=== PATIENT | female | born 1945 | race Caucasian/White ===

== ENCOUNTER 2018-05-29 07:45 | Emergency (ER) | payer MEDICARE, OTHER ==
--- NOTE | 2018-05-29 08:27 | EDM.PDOC ---
ED HPI GENERAL MEDICAL PROBLEM - General Chief Complaint: Cardiovascular Problem Stated Complaint: HIGH BLOOD PRESSURE Time Seen by Provider: 05/29/18 08:27 Source of Information: Reports: Patient History Limitations: Reports: No Limitations - History of Present Illness INITIAL COMMENTS - FREE TEXT/NARRATIVE: 72-year-old female presents to the ED for unclear reasons. She states yesterday she felt well. Is very difficult to nail this down as to what was going on. She reports a feeling of weakness tremulousness and shortness of breath on exertion around her home. Yeso much more short of breath than normal. Has a history of asthma and rarely uses her albuterol inhaler. Denies cough or much sputum production. No fever no chills. Appetite is been fair. She has intermittent problems with chronic bouts of nausea. Recently started on metoprolol which he found that she could not tolerate because it caused too much GI symptoms and constipation. She also stopped her Crestor which was being used for cluster lowering agent because it made her so stiff in her muscles that she could not walk. Her chief complaint is primarily that her blood pressure seems to be elevated and out of control. BP here is 143/89. Onset: Gradual, Unknown/Unsure (Chronic sort of type illness worse yesterday.) Duration: Hour(s):, Intermittent, Waxing/Waning Location: Reports: Chest (Dyspnea shortness of breath and palpitations.), Abdomen (Intermittent nausea). Denies: Upper Extremity, Left, Upper Extremity, Right, Lower Extremity, Left, Other Quality: Reports: Other ("'s and dyspnea. Some dizziness.) Severity: Moderate Improves with: Reports: None Worsens with: Reports: None Context: Denies: Activity, Exercise, Lifting, Sick Contact, Trauma, Other Associated Symptoms: Reports: Cough, Loss of Appetite, Malaise, Shortness of Breath, Weakness. 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) (Has taken no new medications.) Chest Pain Score (Numeric/FACES): 8 - Related Data Allergies Allergy/AdvReac Type Severity Reaction Status Date / Time metoprolol Allergy Edema Verified 05/29/18 08:15 pravastatin Allergy Rash Verified 05/29/18 08:15 diltiazem AdvReac Anxiety Verified 05/29/18 08:58 lisinopril AdvReac Cough Verified 05/29/18 08:58 loratadine AdvReac Body Aches Verified 05/29/18 08:58 rosuvastatin AdvReac Leg Cramps Verified 05/29/18 08:58 [id number] Reductase AdvReac Muscle Verified 05/29/18 08:58 Inhibitor Aches Home Meds: Home Meds Albuterol [Ventolin HFA] 1 - 2 puff INH Q4H PRN 05/29/18 [History] Fluticasone Furoate [Flonase Sensimist] 2 spray NASBOTH DAILY 05/29/18 [History] LORazepam [Ativan] 0.5 mg PO Q8H PRN 05/29/18 [History] LORazepam [Ativan] 0.5 mg PO Q8H PRN #15 tablet 05/29/18 [Rx] Levothyroxine [Synthroid] 50 mcg PO DAILY 05/29/18 [History] Losartan [Cozaar] 50 mg PO DAILY 05/29/18 [History] Magnesium Hydroxide [Milk of Magnesia] 30 ml PO ASDIRECTED PRN 05/29/18 [History ] Ondansetron [Zofran] 4 mg BUCCAL Q6H PRN #10 tab 05/29/18 [Rx] buPROPion [buPROPion XL] 150 mg PO DAILY 05/29/18 [History] Past Medical History HEENT History: Reports: Cataract, Impaired Vision Other HEENT History: wears eyeglasses. 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): Other (See Below) Endocrine/Metabolic History: Reports: Diabetes, Type II (Controlled mostly by diet at this time), Hypothyroidism - Infectious Disease History Infectious Disease History: Reports: Chicken Pox, Measles, Mumps - Past Surgical History HEENT Surgical History: Reports: Cataract Surgery, Tonsillectomy GI Surgical History: Reports: Colonoscopy Female Surgical History: Reports: Breast Reduction, D&C (2 in the past due to heavy menstrual flow.) Social & Family History - Tobacco Use Smoking Status *Q: Never Smoker Second Hand Smoke Exposure: Yes - Caffeine Use Caffeine Use: Reports: Coffee - Recreational Drug Use Recreational Drug Use: No - Living Situation & Occupation Living situation: Reports: Occupation: Retired ED ROS GENERAL - Review of Systems Review Of Systems: See Below Constitutional: Reports: Malaise, Fatigue, Decreased Appetite, Weight Loss. Denies: Fever, Chills HEENT: Reports: Glasses Respiratory: Reports: Shortness of Breath, Cough (Mild and nonproductive). Denies: Wheezing, Pleuritic Chest Pain Cardiovascular: Reports: Blood Pressure Problem (Chronic hypertension.), Dyspnea on Exertion, Lightheadedness. 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 Pulse ox is 95% on room air but her hands are cool to touch.) Eye Exam: Bilateral Eye: Normal Inspection (No scleral icterus) Throat/Mouth: Normal Inspection, Normal Lips, Normal Oropharynx Head: Atraumatic, Normocephalic Neck: Normal Inspection, Supple, Non-Tender, Full Range of Motion, Other. No: Carotid Bruit, Lymphadenopathy (L), Lymphadenopathy (R) Respiratory/Chest: No Respiratory Distress (No JVD), Lungs Clear, Normal Breath Sounds, No Accessory Muscle Use, Other (Pacemaker present left upper anterior chest). No: Rales, Rhonchi, Wheezing Cardiovascular: Normal Peripheral Pulses, Regular Rate, Rhythm, No Edema, No Gallop, No Murmur Peripheral Pulses: 2+: Posterior Tibial (L), Posterior Tibial (R), Dorsalis Pedis (L), Dorsalis Pedis (R) GI/Abdominal: Normal Bowel Sounds, Soft, Non-Tender, No Organomegaly, No Abnormal Bruit, No Mass, Pelvis Stable, Other (No scars.) Back Exam: Normal Inspection, Full Range of Motion. No: CVA Tenderness (L), CVA Tenderness (R) Extremities: Normal Inspection, Normal Range of Motion, Non-Tender, No Pedal Edema. No: Pedal Edema Neurological: Alert, Oriented, CN II-XII Intact, Normal Cognition, Normal Gait Psychiatric: Anxious, Flat Affect Skin Exam: Warm, Dry, Intact, Normal Color, No Rash EKG INTERPRETATION EKG Date: 05/29/18 Time: 08:06 Rhythm: NSR Rate (Beats/Min): 73 [place]: LAD-Left [place] Deviation (-46 with a left anterior fascicular block pattern.) P-Wave: Present (With borderline first-degree AV block) QRS: Other (Decreased voltage in the precordial leads. Poor R-wave progression throughout with late transition) ST-T: Other QT: Normal EKG Interpretation Comments: Abnormal ECG Course - Vital Signs Last Recorded V/S: Last Vital Signs Temp 36.3 C 05/29/18 08:00 Pulse 88 05/29/18 08:00 Resp 16 05/29/18 08:00 BP 143/89 H 05/29/18 08:00 Pulse Ox 95 05/29/18 08:00 - Orders/Labs/Meds Orders: Active Orders 24 hr Category Date Time Status EKG Documentation Completion [RC] STAT Care 05/29/18 08:34 Active Chest 1V Frontal [CR] Stat Exams 05/29/18 08:34 Taken Sodium Chloride 0.9% [Normal Saline] 1,000 ml Med 05/29/18 09:00 Active IV ASDIRECTED Medication Orders Sodium Chloride (Normal Saline) 1,000 mls @ 150 mls/hr IV ASDIRECTED JAMES Last Admin: 05/29/18 09:10 Dose: 150 mls/hr Labs: Laboratory Tests 05/29/18 05/29/18 05/29/18 Range/Units 08:30 08:30 08:30 WBC 8.41 (3.98-10.04) K/mm3 RBC 4.91 (3.98-5.22) M/mm3 Hgb 14.7 (11.2-15.7) gm/L Hct 44.6 (34.1-44.9) % MCV 90.8 (79.4-94.8) fl MCH 29.9 (25.6-32.2) pg MCHC 33.0 (32.2-35.5) g/dl RDW Std Deviation 45.0 (36.4-46.3) fL Plt Count 316 (182-369) K/mm3 MPV 10.5 (9.4-12.3) fl Neutrophils % (Manual) 77 H (40-60) % Band Neutrophils % 0 (0-10) % Lymphocytes % (Manual) 11 L (20-40) % Atypical Lymphs % 0 % Monocytes % (Manual) 10 (2-10) % Eosinophils % (Manual) 0 L (0.7-5.8) % Basophils % (Manual) 2 H (0.1-1.2) Platelet Estimate Adequate RBC Morph Comment Normal D-Dimer, Quantitative (0.19-0.50) mg/L Sodium 140 (136-145) mEq/L Potassium 3.9 (3.5-5.1) mEq/L Chloride 107 (98-107) mEq/L Carbon Dioxide 24 (21-32) mEq/L Anion Gap 12.9 (5-15) BUN 12 (7-18) mg/dL Creatinine 0.9 (0.55-1.02) mg/dL Est Cr Clr Drug Dosing 54.94 mL/min Estimated GFR (MDRD) > 60 (>60) mL/min BUN/Creatinine Ratio 13.3 L (14-18) Glucose 127 H (83-115) mg/dL Hemoglobin A1c (4.50-6.20) % Calcium 9.6 (8.5-10.1) mg/dL Magnesium 2.0 (1.8-2.4) mg/dl Total Bilirubin 0.8 (0.2-1.0) mg/dL AST 17 (15-37) U/L ALT 32 (14-59) U/L Alkaline Phosphatase 86 (46-116) U/L CK-MB (CK-2) 0.9 (0-3.6) ng/ml Troponin I < 0.017 (0.00-0.056) ng/mL C-Reactive Protein 0.5 (<1.0) mg/dL NT-Pro-B Natriuret Pep 66 (0-125) pg/mL Total Protein 6.8 (6.4-8.2) g/dl Albumin 3.5 (3.4-5.0) g/dl Globulin 3.3 gm/dL Albumin/Globulin Ratio 1.1 (1-2) TSH 3rd Generation 2.336 (0.358-3.74) uIU/mL Urine Color (Yellow) Urine Appearance (Clear) Urine pH (5.0-8.0) Ur Specific [place] (1.005-1.030) Urine Protein (Negative) Urine Glucose (UA) (Negative) Urine Ketones (Negative) Urine Occult Blood (Negative) Urine Nitrite (Negative) Urine Bilirubin (Negative) Urine Urobilinogen (0.2-1.0) Ur Leukocyte Esterase (Negative) Urine RBC (0-5) /hpf Urine WBC (0-5) /hpf Ur Epithelial Cells Ur Squamous Epith Cells (0-5) /hpf Urine Bacteria (FEW) /hpf Urine Mucus (FEW) /hpf 05/29/18 05/29/18 05/29/18 Range/Units 08:30 08:30 09:05 WBC (3.98-10.04) K/mm3 RBC (3.98-5.22) M/mm3 Hgb (11.2-15.7) gm/L Hct (34.1-44.9) % MCV (79.4-94.8) fl MCH (25.6-32.2) pg MCHC (32.2-35.5) g/dl RDW Std Deviation (36.4-46.3) fL Plt Count (182-369) K/mm3 MPV (9.4-12.3) fl Neutrophils % (Manual) (40-60) % Band Neutrophils % (0-10) % Lymphocytes % (Manual) (20-40) % Atypical Lymphs % % Monocytes % (Manual) (2-10) % Eosinophils % (Manual) (0.7-5.8) % Basophils % (Manual) (0.1-1.2) Platelet Estimate RBC Morph Comment D-Dimer, Quantitative 0.38 (0.19-0.50) mg/L Sodium (136-145) mEq/L Potassium (3.5-5.1) mEq/L Chloride (98-107) mEq/L Carbon Dioxide (21-32) mEq/L Anion Gap (5-15) BUN (7-18) mg/dL Creatinine (0.55-1.02) mg/dL Est Cr Clr Drug Dosing mL/min Estimated GFR (MDRD) (>60) mL/min BUN/Creatinine Ratio (14-18) Glucose (83-115) mg/dL Hemoglobin A1c 6.10 (4.50-6.20) % Calcium (8.5-10.1) mg/dL Magnesium (1.8-2.4) mg/dl Total Bilirubin (0.2-1.0) mg/dL AST (15-37) U/L ALT (14-59) U/L Alkaline Phosphatase (46-116) U/L CK-MB (CK-2) (0-3.6) ng/ml Troponin I (0.00-0.056) ng/mL C-Reactive Protein (<1.0) mg/dL NT-Pro-B Natriuret Pep (0-125) pg/mL Total Protein (6.4-8.2) g/dl Albumin (3.4-5.0) g/dl Globulin gm/dL Albumin/Globulin Ratio (1-2) TSH 3rd Generation (0.358-3.74) uIU/mL Urine Color Yellow (Yellow) Urine Appearance Clear (Clear) Urine pH 7.0 (5.0-8.0) Ur Specific [place] 1.015 (1.005-1.030) Urine Protein Negative (Negative) Urine Glucose (UA) Negative (Negative) Urine Ketones Negative (Negative) Urine Occult Blood Negative (Negative) Urine Nitrite Negative (Negative) Urine Bilirubin Negative (Negative) Urine Urobilinogen 0.2 (0.2-1.0) Ur Leukocyte Esterase Negative (Negative) Urine RBC Not seen (0-5) /hpf Urine WBC Not seen (0-5) /hpf Ur Epithelial Cells Not Reportable Ur Squamous Epith Cells 0-5 (0-5) /hpf Urine Bacteria Not seen (FEW) /hpf Urine Mucus Not seen (FEW) /hpf Meds: Medications Generic Name Dose Route Start Last Admin Trade Name Freq PRN Reason Stop Dose Admin Sodium Chloride 1,000 mls @ 150 mls/hr 05/29/18 09:00 05/29/18 09:10 Normal Saline IV 150 mls/hr ASDIRECTED JAMES Administration Discontinued Medications Generic Name Dose Route Start Last Admin Trade Name Marli PRN Reason Stop Dose Admin Lorazepam 0.5 mg 05/29/18 08:56 05/29/18 09:08 Ativan IVPUSH 05/29/18 08:57 0.5 mg ONETIME ONE Administration Ondansetron HCl 4 mg 05/29/18 08:35 05/29/18 09:00 Zofran Odt PO 05/29/18 08:36 Not Given ONETIME ONE Ondansetron HCl 4 mg 05/29/18 08:56 05/29/18 09:06 Zofran IVPUSH 05/29/18 08:57 4 mg ONETIME ONE Administration Ondansetron HCl 4 mg 05/29/18 08:58 05/29/18 08:59 Zofran IVPUSH 05/29/18 08:59 Not Given ONETIME ONE - Radiology Interpretation Free Text/Narrative:: 72-year-old female presents to the ED with generally not feeling well. Yesterday she felt horrible and by this she means more short of breath on minimal exertion. Yeso tremulous and weak. Feels her blood pressure is elevated today. Associated increased nausea straight without any vomiting. Nausea is a recurrent problem for her suggesting medications may be part of the problem. She is apparently a type II diabetic currently controlled with no medications because of intolerance to metformin. Has a history of hypercholesterolemia but could not tolerate statins thus far. History of hypertension. Currently on losartan only for blood pressure control. Lungs sound clear to stage percussion. Plan routine labs ECG and chest x-ray to be done. An IV has been started. I will give her normal saline at 150 mils per hour. Zofran 4 mg IV and Ativan 0.5 mg IV as well. - Re-Assessments/Exams Free Text/Narrative Re-Assessment/Exam: 05/29/18 09:22 White count is 8.41 with normal differential 77% neutrophils and no bands. Hemoglobin 14.7 with hematocrit of 44.6. Platelet count 3 or 16,000. D -dimer 0.38. Hemoglobin A1c is 6.10. BNP is 66. Chest x-ray done portably reveals slight hyperinflation of lung ivey. Mild to moderate cardiomegaly. Increased fat pad along the right heart border. Perhaps very minimal vascular congestion. 05/29/18 09:51 Sodium 140 with potassium of 3.9. Chloride 107 with a bicarbonate 24. And a gap is 12.9. BUN is 12 with a creatinine of 0.9. GFR is greater than 60. Glucose is 127. Hemoglobin A1c is 6.10. Calcium is 9.6 with a magnesium of 2.0. Liver function is normal. CK-MB is pending as is troponin I. C -reactive protein is 0.5. BNP is 66. TSH is also pending. Initial urinalysis by dip shows no abnormalities. Leukocyte esterase is negative 05/29/18 10:21 Troponin I is less than 0.017. CK-MB fraction is 0.9. TSH is 2.36. Urinalysis is completely normal. 05/29/18 10:36 patient is feeling much improved. I'm wondering if she doesn't have a component of GERD to contribute to her central chest discomfort at times. It could also be anxiety. She has some insight into this. The Ativan that she is using is from 2009 and likely has lost its potency. Plan I will rewrite a prescription for Ativan 0.5 mg to be used on a when necessary basis for anxiety. Suggested staying on ranitidine every night at bedtime for the next 2 weeks as a trial to see if this makes her feel better. At present she is using only intermittent as-needed basis. I will also write a prescription for Zofran 4 mg sublingual to be used when necessary for nausea relief. She will follow-up with personal care physician if any further problems occur. At present it doesn't appear that her she has any significant diabetes with a glycosylated protein of 6.10 at 12 or not to worry about taking metformin at this time. Tolerate statins. Reassured that her cholesterol was not a major issue at this time. Departure - Departure Time of Disposition: 10:38 Disposition: Home, Self-Care 01 Condition: Fair Clinical Impression: Non-cardiac chest pain, Essential hypertension, benign, Anxiety Prescriptions: LORazepam [Ativan] 0.5 mg PO Q8H PRN #15 tablet PRN Reason: Relief of anxiety Ondansetron [Zofran] 4 mg BUCCAL Q6H PRN #10 tab PRN Reason: nausea or vomiting Referrals: Otoniel Morel MD [Primary Care Provider] - Forms: ED Department Discharge Additional Instructions: Evaluation in the emergency department today in regards to mildly elevated blood pressure and central chest discomfort since yesterday afternoon. No abnormalities were detected on physical examination and vital signs were all normal. Routine labs were performed as well as an ECG and a chest x-ray which proved to be normal. Lab tests revealed no evidence of heart related illness and no blood clots in the lung. Treated with intravenous fluids normal saline and were given Ativan 0.5 mg IV and Zofran 4 mg IV for nausea relief. This seemed to provide some relief suggesting that anxiety may be playing a component in your current symptoms complex. Also possibility of reflux disease occurring at nighttime when you're sleeping causing irritation of the food pipe making have nonspecific chest discomfort is appreciated. Suggest using Zantac 150 mg every night at bedtime for a period of 2 weeks to see if this makes any difference. I did write a prescription for Ativan 0.5 mg tablets to be used on an as as-needed basis for really no relief of anxiety or chest discomfort since the ones that you have at home are quite old and may have lost their potency. Prescription written for Zofran 4 mg under the tongue every 6 hours if needed for relief of nausea. Follow-up with personal care physician if nausea persists as you may need an upper GI endoscopy to look into your food pipe and stomach. - My Orders Last 24 Hours: My Active Orders 05/29/18 08:34 EKG Documentation Completion [RC] STAT Chest 1V Frontal [CR] Stat 05/29/18 09:00 Sodium Chloride 0.9% [Normal Saline] 1,000 ml IV ASDIRECTED - Assessment/Plan Last 24 Hours: My Active Orders 05/29/18 08:34 EKG Documentation Completion [RC] STAT Chest 1V Frontal [CR] Stat 05/29/18 09:00 Sodium Chloride 0.9% [Normal Saline] 1,000 ml IV ASDIRECTED
[2018-05-29] MEDS ORDERED: Ondansetron 4 MG Tab.DIS PO ONE (08:35)
[2018-05-29] MEDS ORDERED: LORazepam 2 MG/ML SDV IVPUSH ONE (08:56)
[2018-05-29] MEDS ORDERED: Ondansetron 4 MG/2 ML SDV IVPUSH ONE ×2 (08:56→08:58)
[2018-05-29] MEDS ORDERED: Sodium Chloride 0.9% 1,000 ML IV SCH (09:00)
[2018-05-29 09:06] LABS: HEMOGLOBIN A1C 6.1 % (4.50-6.20)
--- NOTE | 2018-05-29 13:07 | CR ---
Chest: Portable view of the chest was obtained. Comparison: Prior chest x-ray of 08/10/13. Heart size is normal. Upper mediastinum is normal. Incidental density within the right cardiophrenic angle compatible with epicardial fat pad which is stable. Pacemaker is seen. Lungs are clear with no acute parenchymal change. Bony structures are grossly intact. Impression: 1. Incidental findings. Nothing acute is identified on portable chest x-ray. Diagnostic code #2
== END 2018-05-29 10:55 | disposition home or self-care (01) ==
LOC: JD.ED 07:45
DX: I10 Essential (primary) hypertension (principal); F41.9 Anxiety disorder, unspecified; R07.89 Other chest pain; E11.9 Type 2 diabetes mellitus without complications; E78.00 Pure hypercholesterolemia, unspecified; J45.909 Unspecified asthma, uncomplicated; Z79.899 Other long term (current) drug therapy; Z77.22 Contact with and (suspected) exposure to environmental tobacco smoke (acute) (chronic); Z88.8 Allergy status to other drugs, medicaments and biological substances
CPT/HCPCS: 36415; 71045; 80053; 81001; 82553; 82962; 83036; 83735; 83880; 84443; 84484; 85007; 85027; 85379; 86140; 93005; 96361; 96374; 96375; 99284; J2060; J2405; J7040; 93010; 99285

== ENCOUNTER 2018-06-30 15:54 | Emergency (ER) | payer MEDICARE, OTHER ==
--- NOTE | 2018-06-30 16:57 | EDM.PDOC ---
ED HPI GENERAL MEDICAL PROBLEM - General Chief Complaint: Cardiovascular Problem Stated Complaint: HIGH BLOOD PRESSURE Time Seen by Provider: 06/30/18 16:12 Source of Information: Reports: Patient History Limitations: Reports: No Limitations - History of Present Illness INITIAL COMMENTS - FREE TEXT/NARRATIVE: 72 yo F comes in today for concerns of high blood pressure at home. She states she took her blood pressure medication around 1pm and the reading kept going up. The highest reading at home was 185/91 at 3:30pm. She states she is normally around 135-40 systolically. She last took her BP medication at 1pm today. On arrival to the ED, her BP is 164/72. She denies any CURTIS, blurry vision , SOB, chest pain. She states she just felt "tightness" in her head, which usually means her BP is going up. Her only other concern at this time is that her Losartan that she has been on for years may be causing side effects of feeling jittery, shaky and light-headed, but she currently is not complaining of these symptoms. She states she has an appointment with her primary care provider, Dr. Howard, tomorrow morning to discuss this. No other concerns at this time. - Related Data Allergies Allergy/AdvReac Type Severity Reaction Status Date / Time metoprolol Allergy Edema Verified 06/30/18 16:11 pravastatin Allergy Rash Verified 06/30/18 16:11 diltiazem AdvReac Anxiety Verified 06/30/18 16:11 lisinopril AdvReac Cough Verified 06/30/18 16:11 loratadine AdvReac Body Aches Verified 06/30/18 16:11 rosuvastatin AdvReac Leg Cramps Verified 06/30/18 16:11 Hnixkec-Mmd-Anx Reductase AdvReac Muscle Verified 06/30/18 16:11 Inhibitor Aches Home Meds: Home Meds Levothyroxine [Synthroid] 50 mcg PO DAILY 05/29/18 [History] Losartan [Cozaar] 50 mg PO DAILY 05/29/18 [History] Past Medical History HEENT History: Reports: Cataract, Impaired Vision Other HEENT History: wears eyeglasses. 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: Endocrine/Metabolic History: Reports: Diabetes, Type II, Hypothyroidism - Infectious Disease History Infectious Disease History: Reports: Chicken Pox, Measles, Mumps - Past Surgical History HEENT Surgical History: Reports: Cataract Surgery, Tonsillectomy GI Surgical History: Reports: Colonoscopy Female Surgical History: Reports: Breast Reduction, D&C Social & Family History - Tobacco Use Smoking Status *Q: Never Smoker - Caffeine Use Caffeine Use: Reports: None - Recreational Drug Use Recreational Drug Use: No - Living Situation & Occupation Living situation: Reports: Occupation: Retired ED ROS GENERAL - Review of Systems Review Of Systems: ROS reveals no pertinent complaints other than HPI. ED EXAM, GENERAL - Physical Exam Exam: See Below Exam Limited By: No Limitations General Appearance: Alert, WD/WN, No Apparent Distress Eye Exam: Bilateral Eye: EOMI, Normal Inspection, PERRL Ears: Normal External Exam, Hearing Grossly Normal Nose: Normal Inspection Throat/Mouth: Normal Inspection, Normal Lips, Normal Teeth, Normal Gums, Normal Oropharynx, Normal Voice, No Airway Compromise Head: Atraumatic, Normocephalic Neck: Normal Inspection, Supple, Non-Tender, Full Range of Motion Respiratory/Chest: No Respiratory Distress, Lungs Clear, Normal Breath Sounds, No Accessory Muscle Use, Chest Non-Tender Cardiovascular: Normal Peripheral Pulses, Regular Rate, Rhythm, No Edema, No Gallop, No JVD, No Murmur, No Rub Neurological: Alert, Oriented, CN II-XII Intact, Normal Cognition, Normal Gait, Normal Reflexes, No Motor/Sensory Deficits Psychiatric: Normal Affect, Normal Mood Skin Exam: Warm, Dry, Intact, Normal Color, No Rash Course - Vital Signs Last Recorded V/S: Last Vital Signs Temp 97.2 F 06/30/18 16:09 Pulse 66 06/30/18 16:09 Resp 16 06/30/18 16:09 BP 164/72 H 06/30/18 16:09 Pulse Ox 94 L 06/30/18 16:09 - Re-Assessments/Exams Free Text/Narrative Re-Assessment/Exam: 06/30/18 16:54 Without any intervention, her BP is now down to 144/81. At this time, she is feeling stable enough to go home and does not want any workup done. She will follow up with her PCP tomorrow AM. Departure - Departure Time of Disposition: 16:54 Disposition: Home, Self-Care 01 Condition: Good Clinical Impression: Hypertension, benign Instructions: How to Take Your Blood Pressure, [id number], Hypertension, Easy -to-Read Referrals: Christelle Trejo MD [Primary Care Provider] - Forms: ED Department Discharge Additional Instructions: You were seen in the ED today for concerns of high blood pressure. When you arrived, your blood pressure was 164/72. Your last reading was 144/81. At this time, no intervention was needed. You are feeling well and have no concerns at this time. Offered a heart workup, but at this time you feel it is likely your blood pressure cuff at home gave a false reading. You will therefore be sent home as you are stable at this time. Recommend keeping your appointment with your primary care physician, Dr. Howard, tomorrow at 11am. Please return to ED if new or worsening symptoms.
== END 2018-06-30 17:03 | disposition home or self-care (01) ==
LOC: JD.ED 15:54
DX: I10 Essential (primary) hypertension (principal); E11.9 Type 2 diabetes mellitus without complications; E03.9 Hypothyroidism, unspecified; Z79.899 Other long term (current) drug therapy; Z88.8 Allergy status to other drugs, medicaments and biological substances
CPT/HCPCS: 99281

== ENCOUNTER 2020-05-26 09:20 | Emergency (ER) | payer MEDICARE, OTHER ==
[2020-05-26] MEDS ORDERED: Sodium Chloride 0.9% 10 ML Syringe FLUSH PRN (09:41)
[2020-05-26] MEDS ORDERED: Aspirin 81 MG Tab.Chew PO ONE (09:41)
--- NOTE | 2020-05-26 10:21 | CR ---
Chest: Portable view of the chest was obtained. Comparison: Portable chest x-ray of 05/29/18 is available. Heart size and mediastinum are normal. Slight epicardial fat pad is seen which is stable. Pacemaker is noted. Lungs are clear with no acute parenchymal change. No acute osseous finding is seen. Impression: 1. Nothing acute is appreciated on portable chest x-ray. Diagnostic code #2
--- NOTE | 2020-05-26 10:33 | EDM.PDOC ---
ED HPI GENERAL MEDICAL PROBLEM - General Chief Complaint: Chest Pain Stated Complaint: SOB Time Seen by Provider: 05/26/20 09:35 Source of Information: Reports: Patient History Limitations: Reports: No Limitations - History of Present Illness INITIAL COMMENTS - FREE TEXT/NARRATIVE: The patient presents with left sided chest pain. She describes the pain as burning. It is there all the time and it gets worse with exertion. She has some shortness of breath at times. She has no fever, chills, cough, nausea, vomiting, abdominal pain, leg pain or swelling. She has no history of coronary artery disease. She does have a pacemaker. She had a history of hypertension but her blood pressure was good and she was able to come off of the medications. She does not smoke. This has been going on for about 5 days. Onset: Gradual Duration: Day(s): (5) Location: Reports: Chest Quality: Reports: Burning Severity: Mild Improves with: Reports: Rest Worsens with: Reports: Movement Associated Symptoms: Reports: Chest Pain, Shortness of Breath. Denies: Cough, Fever/Chills, Headaches, Nausea/Vomiting Left Chest Pain Score (Numeric/FACES): 8 - Related Data Allergies Allergy/AdvReac Type Severity Reaction Status Date / Time metoprolol Allergy Edema Verified 05/26/20 09:30 pravastatin Allergy Rash Verified 05/26/20 09:30 diltiazem AdvReac Anxiety Verified 05/26/20 09:30 lisinopril AdvReac Cough Verified 05/26/20 09:30 loratadine AdvReac Body Aches Verified 05/26/20 09:30 rosuvastatin AdvReac Leg Cramps Verified 05/26/20 09:30 [id number] Reductase AdvReac Muscle Verified 05/26/20 09:30 Inhibitor Aches Home Meds: Home Meds Albuterol Sulfate [Proair Hfa] 2 puff INH DAILY PRN 05/26/20 [History] Fluticasone Propion/Salmeterol [Advair 250-50 Diskus] 1 each IH DAILY 05/26/20 [History] Past Medical History HEENT History: Reports: Cataract, Impaired Vision Other HEENT History: wears eyeglasses. Cardiovascular History: Reports: High Cholesterol, Hypertension, Pacemaker Respiratory History: Reports: Asthma [employer] History: Reports: Endocrine/Metabolic History: Reports: Diabetes, Type II, Hypothyroidism - Infectious Disease History Infectious Disease History: Reports: Chicken Pox, Measles, Mumps - Past Surgical History HEENT Surgical History: Reports: Cataract Surgery, Tonsillectomy GI Surgical History: Reports: Colonoscopy Female Surgical History: Reports: Breast Reduction, D&C Social & Family History - Tobacco Use Tobacco Use Status *Q: Never Tobacco User - Caffeine Use Caffeine Use: Reports: None - Recreational Drug Use Recreational Drug Use: No - Living Situation & Occupation Living situation: Reports: Occupation: Retired ED ROS GENERAL - Review of Systems Review Of Systems: See Below Constitutional: Reports: No Symptoms HEENT: Reports: No Symptoms Respiratory: Reports: Shortness of Breath. Denies: Cough Cardiovascular: Reports: Chest Pain Endocrine: Reports: No Symptoms GI/Abdominal: Reports: No Symptoms : Reports: No Symptoms Musculoskeletal: Reports: No Symptoms ED EXAM, GENERAL - Physical Exam Exam: See Below Exam Limited By: No Limitations General Appearance: Alert, No Apparent Distress Ears: Normal External Exam Nose: Normal Inspection Head: Atraumatic, Normocephalic Neck: Normal Inspection, Supple, Non-Tender Respiratory/Chest: No Respiratory Distress, Lungs Clear, Normal Breath Sounds Cardiovascular: Regular Rate, Rhythm, No Edema, No Murmur GI/Abdominal: Soft, Non-Tender, No Organomegaly, No Mass Back Exam: Normal Inspection Extremities: Normal Inspection Neurological: Alert, Oriented, No Motor/Sensory Deficits #1 Interpretation EKG Date: 05/26/20 Time: 09:28 Rhythm: NSR Rate (Beats/Min): 60 [place]: LAD-Left [place] Deviation P-Wave: Present QRS: Normal ST-T: Normal QT: Normal Course - Vital Signs Last Recorded V/S: Last Vital Signs Temp 98.2 F 05/26/20 09:28 Pulse 61 05/26/20 10:55 Resp 15 05/26/20 10:55 BP 134/66 05/26/20 10:55 Pulse Ox 95 05/26/20 10:55 - Orders/Labs/Meds Orders: Active Orders 24 hr Category Date Time Status Cardiac Monitoring [RC] . DIRECTED Care 05/26/20 09:41 Active EKG Documentation Completion [RC] ASDIRECTED Care 05/26/20 09:33 Active Peripheral IV Care [RC] . DIRECTED Care 05/26/20 09:42 Active Sodium Chloride 0.9% [Saline Flush] Med 05/26/20 09:41 Active 10 ml FLUSH ASDIRECTED PRN Peripheral IV Insertion Adult [OM.PC] Stat Oth 05/26/20 09:41 Ordered EKG 12 Lead [EK] Stat Ther 05/26/20 09:33 Ordered Medication Orders Sodium Chloride (Sodium Chloride 0.9% 10 Ml Syringe) 10 ml FLUSH ASDIRECTED PRN PRN Reason: Keep Vein Open Last Admin: 05/26/20 09:45 Dose: 10 ml Documented by: SADIA Labs: Laboratory Tests 05/26/20 05/26/20 05/26/20 Range/Units 09:38 09:38 09:38 WBC 10.05 H (3.98-10.04) K/mm3 RBC 4.98 (3.98-5.22) M/mm3 Hgb 15.0 (11.2-15.7) gm/dl Hct 45.7 H (34.1-44.9) % MCV 91.8 (79.4-94.8) fl MCH 30.1 (25.6-32.2) pg MCHC 32.8 (32.2-35.5) g/dl RDW Std Deviation 47.8 H (36.4-46.3) fL Plt Count 303 (182-369) K/mm3 MPV 10.5 (9.4-12.3) fl Neut % (Auto) 72.8 H (34.0-71.1) % Lymph % (Auto) 18.5 L (19.3-51.7) % Mcmullen % (Auto) 7.5 (4.7-12.5) % Eos % (Auto) 0.9 (0.7-5.8) Baso % (Auto) 0.1 (0.1-1.2) % Neut # (Auto) 7.32 H (1.56-6.13) K/mm3 Lymph # (Auto) 1.86 (1.18-3.74) K/mm3 Mcmullen # (Auto) 0.75 H (0.24-0.36) K/mm3 Eos # (Auto) 0.09 (0.04-0.36) K/mm3 Baso # (Auto) 0.01 (0.01-0.08) K/mm3 Manual Slide Review Normal smear D-Dimer, Quantitative 0.46 (0.19-0.50) mg/L Sodium 142 (136-145) mEq/L Potassium 3.9 (3.5-5.1) mEq/L Chloride 104 (98-107) mEq/L Carbon Dioxide 24 (21-32) mEq/L Anion Gap 17.9 H (5-15) BUN 20 H (7-18) mg/dL Creatinine 1.0 (0.55-1.02) mg/dL Est Cr Clr Drug Dosing 48.00 mL/min Estimated GFR (MDRD) 54 (>60) mL/min BUN/Creatinine Ratio 20.0 H (14-18) Glucose 89 (83-115) mg/dL Calcium 10.0 (8.5-10.1) mg/dL Magnesium 2.1 (1.8-2.4) mg/dl Total Bilirubin 1.1 H (0.2-1.0) mg/dL AST 19 (15-37) U/L ALT 26 (14-59) U/L Alkaline Phosphatase 77 (46-116) U/L Troponin I < 0.017 (0.00-0.056) ng/mL Total Protein 7.6 (6.4-8.2) g/dl Albumin 3.8 (3.4-5.0) g/dl Globulin 3.8 gm/dL Albumin/Globulin Ratio 1.0 (1-2) Meds: Medications Generic Name Dose Route Start Last Admin Trade Name Freq PRN Reason Stop Dose Admin Sodium Chloride 10 ml 05/26/20 09:41 05/26/20 09:45 Sodium Chloride 0.9% 10 Ml Syringe FLUSH 10 ml ASDIRECTED PRN Administration Keep Vein Open Discontinued Medications Generic Name Dose Route Start Last Admin Trade Name Freq PRN Reason Stop Dose Admin Aspirin 324 mg 05/26/20 09:41 05/26/20 09:50 Aspirin 81 Mg Tab.Chew PO 05/26/20 09:42 324 mg ONETIME ONE Administration - Re-Assessments/Exams Free Text/Narrative Re-Assessment/Exam: 05/26/20 10:31 I ordered an IV saline lock, aspirin, EKG, CXR and labs. His EKG shows a NST within no acute changes. Her CXR looks good. Her WBC was slightly elevated at 10.05. Her D-dimer was negative. Her anion gap was elevated at 17.9. Her tot al bili was elevated at 1.1. Her troponin is negative. 05/26/20 11:16 Her provider Neelam has a heart score CT set up for her on Wednesday. I think she also may need a stress test. I will have her call Neelam to set that up. She also has a history of some reflux. This could also be the cause. I will have her take some reflux. Departure - Departure Time of Disposition: 11:30 Disposition: Home, Self-Care 01 Condition: Good Clinical Impression: Atypical chest pain Referrals: Neelam Owusu, [facility] [Primary Care Provider] - 2 Days Forms: ED Department Discharge Additional Instructions: Take your medications as prescribed. Take pepcid daily. Follow up with Neelam and discuss possibly getting a stress test. Please return if you are worse. Sepsis Event Note (ED) - Evaluation Sepsis Screening Result: No Definite Risk - Focused Exam Vital Signs: Vital Signs Temp Pulse Resp BP Pulse Ox 05/26/20 10:55 61 15 134/66 95 05/26/20 09:28 98.2 F 65 16 162/79 H 96 - My Orders Last 24 Hours: My Active Orders 05/26/20 09:33 EKG Documentation Completion [RC] ASDIRECTED EKG 12 Lead [EK] Stat 05/26/20 09:41 Cardiac Monitoring [RC] . DIRECTED Sodium Chloride 0.9% [Saline Flush] 10 ml FLUSH ASDIRECTED PRN Peripheral IV Insertion Adult [OM.PC] Stat 05/26/20 09:42 Peripheral IV Care [RC] . DIRECTED - Assessment/Plan Last 24 Hours: My Active Orders 05/26/20 09:33 EKG Documentation Completion [RC] ASDIRECTED EKG 12 Lead [EK] Stat 05/26/20 09:41 Cardiac Monitoring [RC] . DIRECTED Sodium Chloride 0.9% [Saline Flush] 10 ml FLUSH ASDIRECTED PRN Peripheral IV Insertion Adult [OM.PC] Stat 05/26/20 09:42 Peripheral IV Care [RC] . DIRECTED
== END 2020-05-26 11:30 | disposition home or self-care (01) ==
LOC: JD.ED 09:20
DX: R07.89 Other chest pain (principal); R06.02 Shortness of breath; I10 Essential (primary) hypertension; J45.909 Unspecified asthma, uncomplicated; E11.9 Type 2 diabetes mellitus without complications; Z88.8 Allergy status to other drugs, medicaments and biological substances; Z79.899 Other long term (current) drug therapy
CPT/HCPCS: 36415; 71045; 80053; 83735; 84484; 85025; 85379; 93005; 99285; A9270; 93010; 99284

== ENCOUNTER 2022-03-31 06:53 | Day surgery (SDC) | payer MEDICARE, OTHER ==
[~2022-03-31 06:53] MED LIST: Lactated Ringers 1,000 ML IV SCH; Lidocaine 1%/Sod Bicarbonate in NS 8.4% 1 ML Syringe IDERM PRN; Sodium Chloride 0.9% 10 ML Syringe FLUSH PRN; Sodium Chloride 0.9% 10 ML Syringe FLUSH SCH
[2022-03-31] MEDS ORDERED: Lidocaine 1% 2 ML ONE (07:09)
[2022-03-31] MEDS ORDERED: Midazolam 1 MG/ML 2 ML SDV ONE (07:10)
[2022-03-31] MEDS ORDERED: fentaNYL 100 MCG/2 ML SDV ONE (07:10)
[2022-03-31] MEDS ORDERED: Ondansetron 4 MG/2 ML SDV ONE (07:10)
[2022-03-31] MEDS ORDERED: Propofol 200 MG/20 ML SDV ONE (07:10)
[2022-03-31] MEDS ORDERED: Lidocaine 1% 30 ML SDV ONE (07:11)
[2022-03-31] MEDS ORDERED: Iopamidol 612 MG/ML 50 ML SDV ONE (07:12)
[2022-03-31] MEDS ORDERED: HYDROmorphone 0.5 MG/0.5 ML Syringe IVPUSH PRN (07:26)
[2022-03-31] MEDS ORDERED: Ondansetron 4 MG/2 ML SDV IVPUSH PRN (07:26)
[2022-03-31] MEDS ORDERED: fentaNYL 100 MCG/2 ML SDV IVPUSH PRN (07:26)
== END 2022-03-31 09:22 | disposition home or self-care (01) ==
LOC: JD.SDS 06:53
PROVIDERS: ATTEND Obstetrics & Gynecology
DX: N84.0 Polyp of corpus uteri (principal); E11.9 Type 2 diabetes mellitus without complications; F41.9 Anxiety disorder, unspecified; I10 Essential (primary) hypertension; E03.9 Hypothyroidism, unspecified; J45.909 Unspecified asthma, uncomplicated; E78.00 Pure hypercholesterolemia, unspecified; M79.10 Myalgia, unspecified site; Z98.890 Other specified postprocedural states; Z87.891 Personal history of nicotine dependence; Z79.899 Other long term (current) drug therapy; Z88.8 Allergy status to other drugs, medicaments and biological substances; Z79.82 Long term (current) use of aspirin; Z95.0 Presence of cardiac pacemaker; Z79.890 Hormone replacement therapy
CPT/HCPCS: 58558; J2250; J2405; J2704; J3010; J7120; 00952; 99100; J3490; Q9967